=== PATIENT | female | born 1985 | race Caucasian/White ===

== ENCOUNTER 2017-07-12 07:24 | Day surgery (SDC) | payer BC ==
[~2017-07-12 07:24] MED LIST: Dextrose 5%-0.45% NaCl 1,000 ML IV SCH; Midazolam 1 MG/ML 2 ML SDV ONE; Sodium Chloride 0.9% 10 ML Syringe FLUSH PRN; fentaNYL 100 MCG/2 ML SDV ONE
[2017-07-12] MEDS ORDERED: fentaNYL 100 MCG/2 ML SDV IV ONE ×2 (07:25→08:03)
[2017-07-12] MEDS ORDERED: Midazolam 1 MG/ML 2 ML SDV IV ONE ×3 (07:25→08:06)
--- NOTE | 2017-07-12 09:58 | OR ---
DATE: 07/12/2017 PROCEDURE: Esophagogastroduodenoscopy and multiple pinch biopsies. INSTRUMENT USED: GIF-H180 Olympus video panendoscope. PREMEDICATIONS: No oral topical anesthesia used. Fentanyl 100 mcg intravenous, Versed 2 mg intravenous. Nasal O2 cannula. The procedure was done under pulse oximetry, BP recording, and panel monitor. INDICATION: The patient with persistent abdominal pain, diarrhea, and iron deficiency, unexplained, and not responsive to medical measures. Esophagogastroduodenoscopy is performed for detection of any active erosive lesions, Gonzalez's esophagus and/or malignancy also under consideration, H. pylori status to be determined, small bowel biopsies to be obtained for celiac disease, endoscopic hemostasis therapy if needed. DESCRIPTION OF PROCEDURE: The scope passed with ease. Adequate visualization of the esophagus was made from proximal to distal areas. No upper esophageal lesions identified. No distal esophageal stricture. No uphill or downhill esophageal varices. No Arti-Hoskins tear. No evidence of erosive esophagitis by Labolt criteria. No esophageal polyp or tumor mass identified. Z-line was seen at around 39 cm distal to the oral verge, configuration consistent with grade 1 by ZAP classification. No proximal gastric varices noted. Gastric fundus examination by retroflexion showed no polypoid lesions. No gastric ulcer, malignant mass, or vascular ectasia identified. Duodenal bulb showed no ulcer. Visualized second part of the duodenum was unremarkable. Multiple pinch biopsies 4 in number were taken from different areas of the second part of the duodenum, and tissues were also obtained from the duodenal bulb at 9 and 12 o'clock positions and sent for any histopathologic evidence of intestinal metaplasia. Multiple pinch biopsies were taken from the gastric antrum and proximal body and sent for PyloriTek test for H. pylori and histopathology. No bleeding was noted from any of the visualized areas at the completion of examination. Photographs were taken of the duodenal bulb, gastric antrum, fundus, and distal esophagus. IMPRESSION: Normal study. The patient tolerated the procedure well. [facility] /[id number]
--- NOTE | 2017-07-12 10:49 | LETTER ---
07/12/2017 Jazmin Kim NP [address], [address] [place] [address] RE: AUGUSTA KRUGER : 1985 Dear Mer Kim: Ms. Augusta Kruger had esophagogastroduodenoscopy done this morning and she tolerated the procedure well. I herewith send a copy of the endoscopy note and photographs for your review. Thank you. Sincerely, [facility] /[id number]
== END 2017-07-12 10:06 | disposition home or self-care (01) ==
LOC: DL.ENDO 07:24
PROVIDERS: ATTEND Internal Medicine Gastroenterology
DX: K29.80 Duodenitis without bleeding (principal); E66.9 Obesity, unspecified; Z88.0 Allergy status to penicillin; Z88.8 Allergy status to other drugs, medicaments and biological substances; Z87.891 Personal history of nicotine dependence
CPT/HCPCS: 43239; 87077; J2250; J3010; J7042

== ENCOUNTER 2017-09-11 07:31 | Day surgery (SDC) | payer BC ==
[~2017-09-11 07:31] MED LIST changes: -Dextrose 5%-0.45% NaCl 1,000 ML IV SCH; -Sodium Chloride 0.9% 10 ML Syringe FLUSH PRN
[2017-09-11] MEDS ORDERED: fentaNYL 100 MCG/2 ML SDV IV ONE ×3 (07:32→08:21)
[2017-09-11] MEDS ORDERED: Midazolam 1 MG/ML 2 ML SDV IV ONE ×5 (07:32→08:25)
[2017-09-11] MEDS ORDERED: Lactated Ringers 1,000 ML IV SCH (07:45)
[2017-09-11] MEDS ORDERED: Midazolam 1 MG/ML 2 ML SDV ONE (09:05)
--- NOTE | 2017-09-11 14:52 | OR ---
DATE: 09/11/2017 PREOPERATIVE DIAGNOSIS: Chronic diarrhea. POSTOPERATIVE DIAGNOSIS: Chronic diarrhea. PROCEDURE: Total colonoscopy. PROCEDURE: Total colonoscopy. ANESTHESIA: Conscious sedation with IV Versed and fentanyl. SPECIMEN: None. OPERATIVE FINDINGS: Mild sigmoid diverticulosis, otherwise normal. RECOMMENDATION: Followup colonoscopy age 50 for screening of polyps, otherwise as indicated. INDICATION FOR PROCEDURE: This 32-year-old female referred by Renu Maxwell for evaluation of chronic diarrhea. PROCEDURE: After adequate preparation, a colonoscope was inserted into the rectum. This was easily passed all the way to the cecum. Confirmation of the cecum was made by visualization of the ileocecal valve. A photograph of the cecum and valve was taken. The bowel prep was very good. On withdrawal of the scope, the only abnormality noted was mild diverticulosis. This should be of no consequence however, Anal and rectal examination are normal. Air was suctioned from the colon, and the scope removed. [facility] /[id number]
== END 2017-09-11 09:54 | disposition home or self-care (01) ==
LOC: DL.ENDO 07:31
PROVIDERS: ATTEND Surgery
DX: K57.30 Diverticulosis of large intestine without perforation or abscess without bleeding (principal); E66.9 Obesity, unspecified; Z79.899 Other long term (current) drug therapy; Z88.0 Allergy status to penicillin; Z88.5 Allergy status to narcotic agent; Z90.49 Acquired absence of other specified parts of digestive tract; Z90.89 Acquired absence of other organs; Z98.890 Other specified postprocedural states
CPT/HCPCS: 45378; J2250; J3010; J7120